=== PATIENT | male | born 1985 | race African-American/Black ===

== ENCOUNTER 2020-12-04 19:49 | Emergency (ER) | payer OTHER, SELFPAY ==
[2020-12-04 19:55] VITALS: BP 153/74; PULSE 66; RESP 17; TEMP 36.6; O2SAT 98; BMI 28.0
--- NOTE | 2020-12-04 21:23 | ED.BACK ---
HPI - Back Pain/Injury General Chief Complaint: Back Pain/Injury Stated Complaint: Sharp lower back pain x4 hrs 11/19 Time Seen by Provider: 12/04/20 20:14 Source: patient History of Present Illness HPI Narrative: Patient is a 35-year-old male who several hours ago was sitting on his couch. Had a his sudden bilateral lower back pain. At the time of evaluation he is currently asymptomatic. He states that it went away when he was in the waiting room. Denies any urinary symptoms. No changes in bowel habits. No fevers. Has never had anything like this in the past. Never had a kidney stone before. Related Data Home Medications Medication Instructions Recorded Confirmed No Known Home Medications 12/04/20 12/04/20 Allergies Allergy/AdvReac Type Severity Reaction Status Date / Time No Known Drug Allergies Allergy Verified 12/04/20 19:58 Review of Systems Respiratory Respiratory: Reports system reviewed and no additional complaints, except as documented Gastrointestinal Gastrointestinal: Reports system reviewed and no additional complaints, except as documented Musculoskeletal Musculoskeletal: Reports system reviewed and no additional complaints, except as documented and Reports as per HPI Integumentary/Breasts Skin/Breast: Reports system reviewed and no additional complaints, except as documented Hematologic/Lymphatic On Anticoagulants: No Patient History Medical History Healthy adult Social History Smoking Status: Never smoker Smoking Status: Never smoker alcohol intake frequency: other Substance Use Type: does not use Exam Initial Vital Signs Initial Vital Signs: Vital Signs Temperature 98 F 12/04/20 19:55 Pulse Rate 66 12/04/20 19:55 Respiratory Rate 17 12/04/20 19:55 Blood Pressure 153/74 H 12/04/20 19:55 Pulse Oximetry 98 12/04/20 19:55 Resp Effort & Inspection: normal respiratory effort Cardio Rate: regular rate Back/Spine/Pelvis Back: No CVA tenderness Thoracic/Lumbar Spine: No paraspinal tenderness, No thoracic spinal tenderness and No lumbar spinal tenderness Skin General: no rashes or lesions noted Neuro General: patient alert and patient awake Extrem General: normal to inspection Course Orders Ordered: ED Orders 12/04/20 20:00 Urine Microscopic Stat Vital Signs Vital signs: Vital Signs - 8 hr 12/04/20 21:51 Pulse Rate 64 Respiratory Rate 18 Blood Pressure 137/80 Pulse Oximetry 99 MDM - Back Pain/Injury Lab Data Labs: Lab Results 12/04/20 Range/Units 20:00 Urine RBC None seen (0-5/HPF) Urine WBC None seen (0-5/HPF) Urine Bacteria None seen (None) Ur Culture Indicated? Cult not indicated Urine Dip Bedside Urine Glucose Negative Bedside Urine Bilirubin - Negative Bedside Urine Ketone - Negative Urine Specific [place] 1.01 Bedside Urine Occult Blood +++ Bedside Urine pH 6.0 Bedside Urine Protein - Negative Bedside Urine Urobilinogen - Negative Bedside Urine Nitrite - Negative Bedside Urine Leukocytes - Negative Esterase MDM Narrative Medical decision making narrative: Patient is asymptomatic. He does have blood in his urine however given his lack of symptoms currently I feel that we can hold on further workup for now. No signs of urinary tract infection. Potentially been a kidney stone but he is asymptomatic now. He states he has had blood in his urine in the past. Informed him he should talk with his primary doctor's this does need further workup. He expressed understanding agreement plan. Discharge Plan Departure Patient Disposition: Home Clinical Impression: Back pain, Hematuria Instructions: DI for Hematuria Activity Restrictions/Additional Instructions: It is important that [place] because of the blood that is in your urine today. You need to discuss the indications for referral to see Urology. You have no restrictions on your activities. Return to the emergency department for any new or worsening symptoms Prescriptions: No Action No Known Home Medications RF: 0
[2020-12-04 21:34] LABS: Bacteria Urine None Seen; WBC Urine None Seen (0-5/HPF)
[2020-12-04 21:35] LABS: RBC Urine None Seen (0-5/HPF)
[2020-12-04 21:36] LABS: Culture Indicated Urine Cult Not Indicated
[2020-12-04 21:51] VITALS: BP 137/80; PULSE 64; RESP 18; O2SAT 99
== END 2020-12-04 21:55 | disposition home or self-care (01) ==
PROVIDERS: Emergency Provider Emergency Medicine
DX: M54.50 Low back pain, unspecified (principal); R31.9 Hematuria, unspecified
CPT/HCPCS: 81003; 81015; 99282